=== PATIENT | female | born 1995 | race American Indian/Alaskan Native ===

== ENCOUNTER 2016-11-16 15:47 | Emergency (ER) | payer MEDICAID ==
[2016-11-16] MEDS ORDERED: TYLENOL PO ONE (16:35)
--- NOTE | 2016-11-16 19:10 | Emergency Department Report ---
HPI - General Chief Complaint: Upper Respiratory Infection Time Seen by Provider: 11/16/16 19:03 - HPI HPI: Reports productive cough 3 days with thick yellow mucus. She is complaining the mid chest pain and congestion with coughing and taking a deep breath. She says she's taking Mucinex and cough drops and Tea with honey but is not helping. Denies any nausea vomiting or diarrhea. She says she had fever yesterday she was aching all over. Denies any medical problems. Denies any shortness of breath. He denies any neck pain or stiffness or sore throat. Reports nasal congestion and runny nose. She is reporting body ache all over at 8 out of 10 and protein at 8 out of 10 to chest when coughing. ED Past Medical Hx - Past Medical History Previous Medical History?: No - Surgical History Past Surgical History?: No - Family History Family history: no significant - Social History Smoking Status: Light Tobacco Smoker Substance Use Type: Alcohol - Medications Home Medications: Home Medications Medication Instructions Recorded Confirmed Last Taken Type Fluticasone [Flonase] 1 spray NS QDAY #1 bottle 11/16/16 Unknown Rx Ibuprofen [Motrin] 600 mg PO Q6H PRN #20 tablet 11/16/16 Unknown Rx Loratadine [Claritin] 10 mg PO DAILY #14 tablet 11/16/16 Unknown Rx guaiFENesin/CODEINE [Robitussin AC] 10 ml PO Q8H PRN #210 oral.liqd 11/16/16 Unknown Rx ED Review of Systems ROS: Stated complaint: CHEST PAIN SEVERE COUGHING Other details as noted in HPI Comment: All other systems reviewed and negative Constitutional: chills, fever Eyes: denies: eye discharge ENT: congestion. denies: ear pain, throat pain Respiratory: cough. denies: orthopnea, shortness of breath, SOB with exertion, SOB at rest, stridor, wheezing Cardiovascular: chest pain (With coughing and taking a deep breath). denies: palpitations, edema, syncope Gastrointestinal: denies: abdominal pain, nausea, vomiting, diarrhea Genitourinary: denies: urgency, dysuria, frequency, hematuria, discharge Musculoskeletal: myalgia. denies: back pain, arthralgia Skin: denies: rash Neurological: denies: headache, numbness, paresthesias, confusion, abnormal gait , vertigo Physical Exam - Physical Exam Vital Signs: Vital Signs 11/16/16 11/16/16 16:25 16:38 Temperature 102.2 F H Pulse Rate 100 H Respiratory 16 16 Rate Blood Pressure 142/86 O2 Sat by Pulse 100 Oximetry Vital Signs 11/16/16 11/16/16 11/16/16 16:25 16:38 19:54 Temperature 102.2 F H Pulse Rate 100 H Pulse Rate [ 82 Posterior Bilateral Throughout] Respiratory 16 16 Rate Respiratory 18 Rate [Posterior Bilateral Throughout] Blood Pressure 142/86 Blood Pressure [Right] O2 Sat by Pulse 100 Oximetry 11/16/16 11/16/16 20:04 20:10 Temperature 97.6 F Pulse Rate 85 Pulse Rate [ 95 H Posterior Bilateral Throughout] Respiratory 20 Rate Respiratory 18 Rate [Posterior Bilateral Throughout] Blood Pressure Blood Pressure 123/82 [Right] O2 Sat by Pulse 98 Oximetry General: This is a 20-year-old female well-nourished well-developed in no acute distress. Physical Exam: Head: Normocephalic atraumatic Mouth: Moist, no pharyngeal exudate or erythema. Uvula is midline and oral airway is patent. No facial swelling. No peritonsillar abscesses. Nose: Congested with erythema to mucosa. Clear Drainage. Maxillary and frontal sinuses nontender to palpate Neck: Supple, no C-spine tenderness, no tracheal deviation. Nontender to palpate. no adenopathy Ears: Bilateral TMs congested without erythema. Bilateral EAC without any redness swelling or drainage. Abdomen: Soft, nontender to palpate in all quadrants, normal bowel sounds in all quadrant and negative CVA tenderness bilaterally. Eyes: Bilateral pupils equal and reactive to light, bilateral EOM intact. Bilateral sclera and conjunctiva without injection. Normal accommodation. No Lungs: Scattered wheezing throughout all lung messina with congested cough. Normal work of breathing. No use of accessory muscles. extremity; No CCE. +2 pulses. No neurovascular compromise. Capillary refill is less than 3 seconds Cardiovascular: S1-S2, regular rate rhythm. No murmurs. Skin: clean Dry and intact no rash no lesions Psych: Normal mood and behavior ED Course Vital Signs 11/16/16 11/16/16 16:25 16:38 Temperature 102.2 F H Pulse Rate 100 H Respiratory 16 16 Rate Blood Pressure 142/86 O2 Sat by Pulse 100 Oximetry Vital Signs 11/16/16 11/16/16 11/16/16 16:25 16:38 19:54 Temperature 102.2 F H Pulse Rate 100 H Pulse Rate [ 82 Posterior Bilateral Throughout] Respiratory 16 16 Rate Respiratory 18 Rate [Posterior Bilateral Throughout] Blood Pressure 142/86 Blood Pressure [Right] O2 Sat by Pulse 100 Oximetry 11/16/16 11/16/16 20:04 20:10 Temperature 97.6 F Pulse Rate 85 Pulse Rate [ 95 H Posterior Bilateral Throughout] Respiratory 20 Rate Respiratory 18 Rate [Posterior Bilateral Throughout] Blood Pressure Blood Pressure 123/82 [Right] O2 Sat by Pulse 98 Oximetry - Reevaluation(s) Reevaluation #1: 11/16/16 20:51 Patient here with flulike symptoms. She was given DuoNeb times one treatment in relation, Deltasone 60 mg by mouth. She was given Tylenol and triage area and additional Motrin 800 mg in ED room. Patient vital signs stabilized she said she felt better. X-ray was normal and positive for influenza A. ED Medical Decision Making - Lab Data Influenza A+ and negative - Radiology Data Radiology results: report reviewed Chest x-ray revealed no acute cardiopulmonary processes. - Medical Decision Making ED course: Patient with flulike symptoms and her flu test came back positive for influenza a, chest x-ray is normal I discussed this communicated to patient. Patient was orally challenged in the emergency room with 4 - 240 ml of apple juice and she was able to tolerate without any vomiting. She was given DuoNeb treatment 1, Tylenol 975 mg in triage area, Motrin 800 mg by mouth in ER room and Deltasone 60 mg by mouth in the ER. Upon reevaluation, lungs are clear and patient says she feels much better. Her vital signs are stable she's no longer febrile. I discussed with patient that she will need to follow-up with primary care in 3 days and if she does not have one that she can follow-up with [facility]. I discussed with her that she needs to drink plenty of water at least 2-3 days per day, take Motrin for body aches and to leave fever and to rest for 72 hours. She voices understanding of discharge instruction and discharged home with prescription for Flonase, Motrin , guaifenesin with codeine and Claritin. Patient Also reported that her chest feels better and she is no longer having any chest pain. Critical care attestation.: If time is entered above; I have spent that time in minutes in the direct care of this critically ill patient, excluding procedure time. ED Disposition Clinical Impression: Influenza A, Cough, Fever in adult Disposition: DISCHARGED TO HOME OR SELFCARE Is pt being admited?: No Does the pt Need Aspirin: No Condition: Stable Instructions: Influenza (ED), Acute Cough (ED), Fever in Adults (ED) Additional Instructions: Please increase her fluid intake to 2-3 liters per day Take meds as prescribed Please do not drive or operate heavy machinery while on cough medication as it can cause drowsiness. Please follow-up with your primary care doctor if he does not have a primary care physician then he can follow-up with outside Medical Center. Take Motrin or Motrin per dosing chart guideline to keep fever down and to use pain. Please rest for 72 hours. Prescriptions: Fluticasone [Flonase] 1 spray NS QDAY #1 bottle guaiFENesin/CODEINE [Robitussin AC] 10 ml PO Q8H PRN #210 oral.liqd PRN Reason: Cough Ibuprofen [Motrin] 600 mg PO Q6H PRN #20 tablet PRN Reason: PAIN AND FEVER Loratadine [Claritin] 10 mg PO DAILY #14 tablet Referrals: [facility] - [place] [Outside] - 2-3 Days Forms: Work/School Release Form(ED)
[2016-11-16] MEDS ORDERED: DELTASONE PO ONE (19:11)
[2016-11-16] MEDS ORDERED: DUONEB 0.5 MG-3 MG/3 ML SOLN IH ONE (19:11)
--- NOTE | 2016-11-16 20:28 | XRay Report ---
FINAL REPORT EXAM: XR CHEST ROUTINE 2V HISTORY: couugh and fever TECHNIQUE: PA and lateral chest radiographs PRIORS: None. FINDINGS: No focal consolidations are seen in the lungs and there are no pleural effusions.The cardiomediastinal silhouette is within normal limits for size and contour. No acute osseous abnormality is identified. IMPRESSION: 1. No definite radiographic evidence of acute cardiopulmonary disease. 2. No focal infiltrate is identified.
[2016-11-16 21:20] VITALS: BP 118/77
== END 2016-11-16 21:21 | disposition home or self-care (01) ==
LOC: ED 15:47
DX: J09.X2 Influenza due to identified novel influenza A virus with other respiratory manifestations (principal); Z72.0 Tobacco use
CPT/HCPCS: 71020; 87400; 94640; 99283; J7512

== ENCOUNTER 2016-12-18 15:12 | Emergency (ER) | payer SELFPAY ==
--- NOTE | 2016-12-18 18:33 | Emergency Department Report ---
ED ENT HPI - General Chief complaint: Sore Throat Stated complaint: HURTS WHEN SWOLLOW /LT EAR PAIN Time Seen by Provider: 12/18/16 18:08 Source: patient Mode of arrival: Ambulatory Limitations: No Limitations - History of Present Illness Initial comments: PT states she works at [employer] and lots of sick people come in and cough everywhere. PT states she just had the flu at the end of last month. PT reports sore throat that is not improving with OTC meds x 4 days. PT states her L ear hurts and she is having a productive cough. MD complaint: sore throat Onset/Timin -: days(s) Location: L ear, throat Severity scale (0 -10): 10 Quality: constant Improves with: none Worsens with: swallowing, eating (pt currently eating ) Context- Ear: recent illness Associated Symptoms: cough, pain with swallowing, sore throat, rhinorrhea. denies: fever, discharge from ear - Related Data Previous Rx's Medication Instructions Recorded Last Taken Type Fluticasone [Flonase] 1 spray NS QDAY #1 bottle 11/16/16 Unknown Rx Ibuprofen [Motrin] 600 mg PO Q6H PRN #20 tablet 11/16/16 Unknown Rx Loratadine [Claritin] 10 mg PO DAILY #14 tablet 11/16/16 Unknown Rx guaiFENesin/CODEINE [Robitussin AC] 10 ml PO Q8H PRN #210 oral.liqd 11/16/16 Unknown Rx Azithromycin [Zithromax] 250 mg PO DAILY #6 tablet 12/18/16 Unknown Rx Tobramycin 0.3% [Tobrex] 2 drop OD Q8HR 7 Days 12/18/16 Unknown Rx Allergies Allergy/AdvReac Type Severity Reaction Status Date / Time No Known Allergies Allergy Verified 11/16/16 16:34 ED Dental HPI - General Chief complaint: Sore Throat Stated complaint: HURTS WHEN SWOLLOW /LT EAR PAIN Time Seen by Provider: 12/18/16 18:08 Source: patient Mode of arrival: Ambulatory Limitations: No Limitations - Related Data Previous Rx's Medication Instructions Recorded Last Taken Type Fluticasone [Flonase] 1 spray NS QDAY #1 bottle 11/16/16 Unknown Rx Ibuprofen [Motrin] 600 mg PO Q6H PRN #20 tablet 11/16/16 Unknown Rx Loratadine [Claritin] 10 mg PO DAILY #14 tablet 11/16/16 Unknown Rx guaiFENesin/CODEINE [Robitussin AC] 10 ml PO Q8H PRN #210 oral.liqd 11/16/16 Unknown Rx Azithromycin [Zithromax] 250 mg PO DAILY #6 tablet 12/18/16 Unknown Rx Tobramycin 0.3% [Tobrex] 2 drop OD Q8HR 7 Days 12/18/16 Unknown Rx Allergies Allergy/AdvReac Type Severity Reaction Status Date / Time No Known Allergies Allergy Verified 11/16/16 16:34 ED Review of Systems ROS: Stated complaint: HURTS WHEN SWOLLOW /LT EAR PAIN Other details as noted in HPI Comment: All other systems reviewed and negative Eyes: eye discharge ENT: as per HPI, ear pain, throat pain Respiratory: cough, other (pt reports coughing up yellow phelm ) Gastrointestinal: denies: abdominal pain Genitourinary: denies: abnormal menses (lmp [id number] ) ED Past Medical Hx - Social History Smoking Status: Light Tobacco Smoker Substance Use Type: Alcohol - Medications Home Medications: Home Medications Medication Instructions Recorded Confirmed Last Taken Type Fluticasone [Flonase] 1 spray NS QDAY #1 bottle 11/16/16 Unknown Rx Ibuprofen [Motrin] 600 mg PO Q6H PRN #20 tablet 11/16/16 Unknown Rx Loratadine [Claritin] 10 mg PO DAILY #14 tablet 11/16/16 Unknown Rx guaiFENesin/CODEINE [Robitussin AC] 10 ml PO Q8H PRN #210 oral.liqd 11/16/16 Unknown Rx Azithromycin [Zithromax] 250 mg PO DAILY #6 tablet 12/18/16 Unknown Rx Tobramycin 0.3% [Tobrex] 2 drop OD Q8HR 7 Days 12/18/16 Unknown Rx ED Physical Exam - General Limitations: No Limitations General appearance: alert, in no apparent distress - Head Head exam: Present: atraumatic, normocephalic, normal inspection - Eye Eye exam: Present: PERRL, EOMI, conjunctival injection (OD ). Absent: nystagmus , periorbital swelling, periorbital tenderness Pupils: Present: normal accommodation - ENT ENT exam: Present: mucous membranes moist, TM's normal bilaterally, normal external ear exam - Expanded ENT Exam Expanded Mouth exam: Absent: drooling, trismus Throat exam: Positive: tonsillar erythema, tonsillomegaly. Negative: tonsillar exudate, R peritonsillar mass, L peritonsillar mass - Neck Neck exam: Present: normal inspection, tenderness, lymphadenopathy - Respiratory Respiratory exam: Present: normal lung sounds bilaterally. Absent: respiratory distress, wheezes - Cardiovascular Cardiovascular Exam: Present: regular rate, normal rhythm - GI/Abdominal GI/Abdominal exam: Present: soft. Absent: tenderness - Extremities Exam Extremities exam: Present: normal inspection, full ROM - Back Exam Back exam: Present: normal inspection, full ROM. Absent: tenderness, CVA tenderness (R), CVA tenderness (L), muscle spasm, paraspinal tenderness, vertebral tenderness - Neurological Exam Neurological exam: Present: alert, oriented X3 - Psychiatric Psychiatric exam: Present: normal affect, normal mood - Skin Skin exam: Present: warm, dry, intact ED Course Vital Signs 12/18/16 12/18/16 17:26 18:48 Temperature 98.3 F 98.7 F Pulse Rate 76 80 Respiratory 20 16 Rate Blood Pressure 136/90 Blood Pressure 112/62 [Right] O2 Sat by Pulse 100 100 Oximetry - Reevaluation(s) Reevaluation #1: 12/18/16 18:34 PT's rapid strep was negative, culture pending. Giving pt's clinical presentation, will treat for strep throat empirically - Pulse Oximetry Interpretation Digit-Finger Initial Pulse Oximetry Readin Actions Taken: none ED Medical Decision Making - Differential Diagnosis viral uri, conjunctivitis, strep pharyngitis, bronchitis Critical care attestation.: If time is entered above; I have spent that time in minutes in the direct care of this critically ill patient, excluding procedure time. ED Disposition Clinical Impression: Cough Pharyngitis Qualifiers: Pharyngitis/tonsillitis etiology: unspecified etiology Qualified Code(s): J02.9 - Acute pharyngitis, unspecified Conjunctivitis Qualifiers: Conjunctivitis type: acute Acute conjunctivitis type: unspecified Laterality: right Qualified Code(s): H10.31 - Unspecified acute conjunctivitis, right eye Disposition: DISCHARGED TO HOME OR SELFCARE Is pt being admited?: No Does the pt Need Aspirin: No Condition: Stable Instructions: Conjunctivitis (ED), Tonsillitis (ED) Additional Instructions: Warm compresses to R eye Good hand washing Continue OTC medication for throat pain Prescriptions: Azithromycin [Zithromax] 250 mg PO DAILY #6 tablet Tobramycin 0.3% [Tobrex] 2 drop OD Q8HR 7 Days Referrals: [facility] [place] [Outside] - 3-5 Days [facility] [Outside] - 3-5 Days DELLA YOUNGER MD, PHD [Staff Physician] - 3-5 Days PRIMARY CAREMD [Primary Care Provider] - 3-5 Days Time of Disposition: 18:37
[2016-12-18 18:49] VITALS: BP 112/62
== END 2016-12-18 18:50 | disposition home or self-care (01) ==
LOC: ED 15:12
DX: H10.31 Unspecified acute conjunctivitis, right eye (principal); J02.9 Acute pharyngitis, unspecified; R05 Cough; F17.200 Nicotine dependence, unspecified, uncomplicated
CPT/HCPCS: 87116; 87430; 99282

== ENCOUNTER 2017-05-18 15:08 | Emergency (ER) | payer OTHER ==
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
[2017-05-18] MEDS ORDERED: MOTRIN PO ONE (18:42)
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
[2017-05-18 20:01] VITALS: BP 127/82
== END 2017-05-18 20:01 | disposition home or self-care (01) ==
LOC: ED 15:08
DX: S16.1XXA Strain of muscle, fascia and tendon at neck level, initial encounter (principal); M25.561 Pain in right knee; M54.5 Low back pain; V49.9XXA Car occupant (driver) (passenger) injured in unspecified traffic accident, initial encounter; Y93.89 Activity, other specified; Y92.89 Other specified places as the place of occurrence of the external cause; Y99.8 Other external cause status
CPT/HCPCS: 72040; 81025; 99284

== ENCOUNTER 2019-09-15 23:23 | Emergency (ER) | payer SELFPAY ==
[2019-09-15 23:45] VITALS: BP 153/83
--- NOTE | 2019-09-16 00:04 | XRay Report ---
LEFT KNEE 2 VIEWS INDICATION: Injury. COMPARISON: No relevant prior imaging study available. FINDINGS: No acute fracture or dislocation is seen. No soft tissue swelling or foreign bodies. There are no significant degenerative changes. IMPRESSION: 1. No acute skeletal abnormality. Signer Name: Bhavin Chau MD Signed: 09/16/2019 12:00 AM Workstation Name: [id number]
[2019-09-16] MEDS ORDERED: IBUPROFEN 800 MG TAB PO ONE (03:18)
[2019-09-16] MEDS ORDERED: IBUPROFEN 800 MG TAB ONE (03:18)
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
== END 2019-09-16 04:58 | disposition home or self-care (01) ==
LOC: ED 23:23
DX: S86.912A Strain of unspecified muscle(s) and tendon(s) at lower leg level, left leg, initial encounter (principal); F31.9 Bipolar disorder, unspecified; Z79.899 Other long term (current) drug therapy; Y04.0XXA Assault by unarmed brawl or fight, initial encounter; Y93.89 Activity, other specified; Y92.89 Other specified places as the place of occurrence of the external cause; Y99.8 Other external cause status

== ENCOUNTER 2020-08-01 22:20 | Emergency (ER) | payer SELFPAY ==
[2020-08-02 01:56] VITALS: BP 145/93
[2020-08-02] MEDS ORDERED: predniSONE 50 MG TAB PO ONE (02:24)
[2020-08-02] MEDS ORDERED: AMOXICILLIN/K CLAV 875/125MG TAB PO ONE (02:24)
[2020-08-02] MEDS ORDERED: IBUPROFEN 600 MG TAB PO ONE (02:24)
[2020-08-02] MEDS ORDERED: LIDOCAINE VISCOUS 2% 15 ML ORAL LIQD PO ONE (02:24)
--- NOTE | 2020-08-02 02:30 | Emergency Department Report ---
ED General Adult HPI - General Chief complaint: Sore Throat Stated complaint: SORE THROAT Source: patient Mode of arrival: Ambulatory Limitations: No Limitations - History of Present Illness Initial comments: Patient is a 24-year-old -[place] female with past medical history of Bipolar d/o presents to the ED with complaint of acute onset persistent severe sore throat with dysphagia and painful anterior cervical lymph nodes for the last 2 days. Patient states that she has not been able to eat anything because of persistent sore throat. Patient denies fever, chills, nausea, vomiting, dizziness, syncope, chest pain, shortness of breath, abdominal pain, nasal and sinus congestion or dysuria and urinary frequency and urgency. MD Complaint: Sore throat; dysphagia; cervical lymphadenopathy -: Sudden, days(s) (2) Location: mouth Radiation: non-radiation Severity scale (0 -10): 8 Quality: aching, sharp, constant Consistency: constant Improves with: none Worsens with: eating Associated Symptoms: denies other symptoms, loss of appetite. denies: confusion, chest pain, cough, diaphoresis, fever/chills, headaches, malaise, nausea/vomiting, rash, seizure, shortness of breath, syncope, weakness Treatments Prior to Arrival: none - Related Data Previous Rx's Medication Instructions Recorded Last Taken Type Fluticasone [Flonase] 1 spray NS QDAY #1 bottle 11/16/16 Unknown Rx Loratadine (Nf) [Claritin] 10 mg PO DAILY #14 tablet 11/16/16 Unknown Rx Ibuprofen [Motrin] 600 mg PO Q8H PRN #15 tablet 05/18/17 Unknown Rx methOCARBAMOL [Robaxin TAB] 500 mg PO Q6H PRN #15 tablet 05/18/17 Unknown Rx traMADoL [Ultram] 50 mg PO Q6HR PRN #12 tablet 05/18/17 Unknown Rx Naproxen 500 mg PO BID PRN #30 tablet 09/16/19 Unknown Rx predniSONE [Deltasone] 40 mg PO QDAY 5 Days #10 tab 09/16/19 Unknown Rx Ibuprofen [Motrin] 800 mg PO Q8HR PRN #30 tablet 08/02/20 Unknown Rx Lidocaine Viscous 2% 10 ml PO Q6H PRN #120 ml 08/02/20 Unknown Rx Penicillin V Potassium 500 mg PO Q6H #40 tablet 08/02/20 Unknown Rx Allergies Allergy/AdvReac Type Severity Reaction Status Date / Time No Known Allergies Allergy Verified 11/16/16 16:34 ED Review of Systems ROS: Stated complaint: SORE THROAT Other details as noted in HPI Constitutional: denies: chills, fever Eyes: denies: eye pain, eye discharge, vision change ENT: throat pain, other (dysphagia). denies: ear pain Respiratory: denies: cough, shortness of breath, wheezing Cardiovascular: denies: chest pain, palpitations Endocrine: no symptoms reported Gastrointestinal: denies: abdominal pain, nausea, diarrhea Genitourinary: denies: urgency, dysuria, discharge Musculoskeletal: denies: back pain, joint swelling, arthralgia Skin: denies: rash, lesions Neurological: denies: headache, weakness, paresthesias Psychiatric: denies: anxiety, depression Hematological/Lymphatic: denies: easy bleeding, easy bruising ED Past Medical Hx - Past Medical History Previous Medical History?: No Hx Psychiatric Treatment: Yes (Bipolar) - Surgical History Past Surgical History?: Yes Additional Surgical History: right wrist - Social History Smoking Status: Never Smoker Substance Use Type: None - Medications Home Medications: Home Medications Medication Instructions Recorded Confirmed Last Taken Type Fluticasone [Flonase] 1 spray NS QDAY #1 bottle 11/16/16 Unknown Rx Loratadine (Nf) [Claritin] 10 mg PO DAILY #14 tablet 11/16/16 Unknown Rx Ibuprofen [Motrin] 600 mg PO Q8H PRN #15 tablet 05/18/17 Unknown Rx methOCARBAMOL [Robaxin TAB] 500 mg PO Q6H PRN #15 tablet 05/18/17 Unknown Rx traMADoL [Ultram] 50 mg PO Q6HR PRN #12 tablet 05/18/17 Unknown Rx Naproxen 500 mg PO BID PRN #30 tablet 09/16/19 Unknown Rx predniSONE [Deltasone] 40 mg PO QDAY 5 Days #10 tab 09/16/19 Unknown Rx Ibuprofen [Motrin] 800 mg PO Q8HR PRN #30 tablet 08/02/20 Unknown Rx Lidocaine Viscous 2% 10 ml PO Q6H PRN #120 ml 08/02/20 Unknown Rx Penicillin V Potassium 500 mg PO Q6H #40 tablet 08/02/20 Unknown Rx ED Physical Exam - General Limitations: No Limitations General appearance: alert, in no apparent distress - Head Head exam: Present: atraumatic, normocephalic, normal inspection - Eye Eye exam: Present: normal appearance, PERRL, EOMI Pupils: Present: normal accommodation - ENT ENT exam: Present: mucous membranes moist, TM's normal bilaterally, normal external ear exam, other (Erythematous oropharynx and tonsills) - Neck Neck exam: Present: normal inspection, full ROM, lymphadenopathy - Respiratory Respiratory exam: Present: normal lung sounds bilaterally. Absent: respiratory distress, wheezes, rales, rhonchi, chest wall tenderness, accessory muscle use, decreased breath sounds, prolonged expiratory - Cardiovascular Cardiovascular Exam: Present: regular rate, normal rhythm, normal heart sounds. Absent: systolic murmur, diastolic murmur, rubs, gallop - GI/Abdominal GI/Abdominal exam: Present: soft, normal bowel sounds. Absent: distended, tenderness, guarding, hyperactive bowel sounds, hypoactive bowel sounds, organomegaly - Extremities Exam Extremities exam: Present: normal inspection, full ROM, normal capillary refill - Back Exam Back exam: Present: normal inspection, full ROM. Absent: tenderness, CVA tenderness (R), CVA tenderness (L), muscle spasm, paraspinal tenderness, vertebral tenderness - Neurological Exam Neurological exam: Present: alert, oriented X3, CN II-XII intact, normal gait, reflexes normal - Psychiatric Psychiatric exam: Present: normal affect, normal mood - Skin Skin exam: Present: warm, dry, intact, normal color. Absent: rash ED Course Vital Signs 08/01/20 23:45 Temperature 99.0 F Pulse Rate 80 Respiratory 18 Rate Blood Pressure 145/93 O2 Sat by Pulse 95 Oximetry ED Medical Decision Making - Medical Decision Making This is a 24-year-old -[place] female with past medical history of Bipolar d/o presents to the ED with complaint of acute onset persistent severe sore throat with dysphagia and painful anterior cervical lymph nodes for the last 2 days. Patient states that she has not been able to eat anything because of persistent sore throat. In the ED, patient is alert and oriented x3 and is not in any distress. Patient was treated for pain in the ED and was also given initial oral antibiotics in the ED. Patient was discharged home on medications and advised to follow-up with her primary care physician in 7 to 10 days for reevaluation or return to the ED immediately if symptoms get worse. - Differential Diagnosis Strep pharyngitis; Tonsillar abscess; URI; Viral Pharyngitis Critical care attestation.: If time is entered above; I have spent that time in minutes in the direct care of this critically ill patient, excluding procedure time. ED Disposition Clinical Impression: Acute bacterial pharyngitis, Acute bacterial tonsillitis, Anterior cervical lymphadenopathy Disposition: TO HOME OR SELFCARE Is pt being admited?: No Does the pt Need Aspirin: No Condition: Stable Instructions: Tonsillitis, [id number], Pharyngitis, [id number], Sore Throat, [id number] Additional Instructions: Take medication with food, drink plenty of fluids and follow-up with your primary care physician in 7 to 10 days for reevaluation. Return to the ED immediately if symptoms get worse. Prescriptions: Lidocaine Viscous 2% 10 ml PO Q6H PRN #120 ml PRN Reason: Sore Throat Ibuprofen [Motrin] 800 mg PO Q8HR PRN #30 tablet PRN Reason: Pain , Severe (7-10) Penicillin V Potassium 500 mg PO Q6H #40 tablet Referrals: [facility] [Provider Group] - 7-10 days Time of Disposition: 02:32 Print Language: SWISS
== END 2020-08-02 03:30 | disposition home or self-care (01) ==
LOC: ED 22:20
DX: J02.8 Acute pharyngitis due to other specified organisms (principal); R59.0 Localized enlarged lymph nodes; B96.89 Other specified bacterial agents as the cause of diseases classified elsewhere; F31.9 Bipolar disorder, unspecified; Z98.890 Other specified postprocedural states; Z79.899 Other long term (current) drug therapy
CPT/HCPCS: 99282; J7512